=== PATIENT | female | born 1990 | race Caucasian/White ===

== ENCOUNTER 2018-07-08 02:00 | Inpatient (IN) | payer MEDICAID ==
[2018-07-08] MEDS ORDERED: OXYTOCIN 30 UNITS/LR 500 ML IV ×2 (02:14→04:30)
[2018-07-08] MEDS ORDERED: LIDOCAINE 1% (MPF) 30 ML INJ (02:14)
[2018-07-08] MEDS ORDERED: AMPICILLIN 2 GM/NS (PMX) 100 ML (02:16)
[2018-07-08] MEDS: LACTATED RINGER'S 1,000 ML IV ×2 (02:27→13:37)
[2018-07-08] MEDS: AMPICILLIN 2 GM/NS (PMX) 100 ML IV (02:27)
[2018-07-08 02:44] LABS: ADD MAN DIFF? NO
[2018-07-08 02:49] LABS: BASOPHILS % 0.4 % (0.0-2.0); EOSINOPHILS # 0.1 10^3/ul (0.0-0.5); EOSINOPHILS % 1.3 % (0.0-7.0); HEMATOCRIT 30.5 % (37.0-47.0); HEMOGLOBIN 10.1 g/dl (12.0-16.0); LYMPHOCYTES # 1.5 10^3/ul (0.8-2.9); LYMPHOCYTES % 22.5 % (15.0-51.0); MEAN CORPUSCULAR HEMOGLOBIN 28.9 pg (29.0-33.0); MEAN CORPUSCULAR HGB CONC 33.1 g/dl (32.0-37.0); MEAN CORPUSCULAR VOLUME 87.4 fl (82.0-101.0); MEAN PLATELET VOLUME 12.1 fl (7.4-10.4); MONOCYTE # 0.4 10^3/ul (0.3-0.9); MONOCYTES % 6.3 % (0.0-11.0); NEUTROPHIL # 4.7 10^3/ul (1.6-7.5); NEUTROPHILS % 69.1 % (39.0-77.0); PLATELET COUNT 177 10^3/UL (140-415); RED BLOOD COUNT 3.49 10^6/ul (4.20-5.40); RED CELL DISTRIBUTION WIDTH 13.2 % (11.5-14.5)
[2018-07-08 02:49] LABS: WHITE BLOOD COUNT 6.9 10^3/ul (4.8-10.8)
[2018-07-08 03:08] LABS: INR 0.85; PROTIME 11.7 Sec (11.9-14.9); PT RATIO 0.9
[2018-07-08] MEDS ORDERED: MINERAL OIL LIGHT 10 ML VIAL (03:08)
[2018-07-08 03:09] LABS: PARTIAL THROMBOPLASTIN TIME 26.1 Sec (23.0-35.0)
[2018-07-08] MEDS: LIDOCAINE 1% (MPF) 30 ML INJ INJ (03:25)
[2018-07-08] MEDS: MINERAL OIL LIGHT 10 ML VIAL TOP (03:26)
[2018-07-08] MEDS: OXYTOCIN 30 UNITS/LR 500 ML IV ×3 (03:28→04:27)
[2018-07-08] MEDS: METHYLERGONOVINE 0.2 MG INJ IM (03:45)
[2018-07-08] MEDS: MISOPROSTOL 200 MCG TAB PR (04:01)
[2018-07-08] MEDS ORDERED: DEXTROSE 5%-LR 1,000 ML IV (04:20)
[2018-07-08] MEDS ORDERED: OXYCODONE/ASPIRIN (4.88/325) TAB PO (04:30)
[2018-07-08] MEDS ORDERED: ONDANSETRON 4 MG INJ IV (04:30)
[2018-07-08] MEDS ORDERED: METHYLERGONOVINE 0.2 MG INJ IM (04:30)
[2018-07-08] MEDS ORDERED: WITCH HAZEL/GLYCERIN PAD PR (04:30)
[2018-07-08] MEDS ORDERED: LANOLIN HPA 1 PKT TOP (04:30)
[2018-07-08] MEDS ORDERED: DIPHENHYDRAMINE 50 MG INJ IV (04:30)
[2018-07-08] MEDS ORDERED: BENZOCAINE 20% 56 ML SPRAY TOP (04:30)
[2018-07-08] MEDS ORDERED: CARBOPROST 250 MCG INJ IM (04:30)
[2018-07-08] MEDS ORDERED: ACETAMINOPHEN 325 MG TAB PO (04:30)
[2018-07-08] MEDS ORDERED: DIBUCAINE 1% 30 GM OINT TOP (04:30)
[2018-07-08] MEDS ORDERED: ZOLPIDEM 5 MG TAB PO (04:30)
[2018-07-08] MEDS ORDERED: MISOPROSTOL 200 MCG TAB PR (04:30)
[2018-07-08] MEDS: CARBOPROST 250 MCG INJ IM (05:14)
[2018-07-08] MEDS: ONDANSETRON 4 MG INJ IV (06:30)
[2018-07-08] MEDS: AMPICILLIN 1 GM/NS (PMX) 50 ML IV (06:30)
[2018-07-08] MEDS: OXYCODONE/ASPIRIN (4.88/325) TAB PO (06:58)
[2018-07-08] MEDS: LACTATED RINGER'S 1,000 ML IV* ×3 (08:33→20:15)
[2018-07-08 09:14] LABS: ADD MAN DIFF? NO
[2018-07-08 09:17] LABS: WHITE BLOOD COUNT 14.6 10^3/ul (4.8-10.8)
[2018-07-08 09:17] LABS: BASOPHILS % 0.2 % (0.0-2.0); HEMATOCRIT 36.6 % (37.0-47.0); HEMOGLOBIN 12.1 g/dl (12.0-16.0); LYMPHOCYTES # 0.9 10^3/ul (0.8-2.9); MEAN CORPUSCULAR HEMOGLOBIN 28.9 pg (29.0-33.0); MEAN CORPUSCULAR HGB CONC 33.1 g/dl (32.0-37.0); MEAN CORPUSCULAR VOLUME 87.6 fl (82.0-101.0); MEAN PLATELET VOLUME 12.5 fl (7.4-10.4); MONOCYTE # 0.5 10^3/ul (0.3-0.9); MONOCYTES % 3.6 % (0.0-11.0); NEUTROPHIL # 13.2 10^3/ul (1.6-7.5); NEUTROPHILS % 89.9 % (39.0-77.0); PLATELET COUNT 210 10^3/UL (140-415); RED BLOOD COUNT 4.18 10^6/ul (4.20-5.40); RED CELL DISTRIBUTION WIDTH 12.9 % (11.5-14.5)
[2018-07-08] MEDS: SOD CHLORIDE 0.9% 1,000 ML IV (09:18)
[2018-07-08] MEDS ORDERED: CEFAZOLIN 2 GM/50 ML (PMX) 50 ML IVPB (09:52)
[2018-07-08] MEDS: CEFAZOLIN 2 GM/50 ML (PMX) 50 ML IVPB (10:01)
[2018-07-08] MEDS: BUTORPHANOL 2 MG INJ IV (10:28)
[2018-07-08 11:20] LABS: ADD MAN DIFF? NO
[2018-07-08 11:27] LABS: WHITE BLOOD COUNT 13.2 10^3/ul (4.8-10.8)
[2018-07-08 11:27] LABS: BASOPHILS % 0.2 % (0.0-2.0); HEMATOCRIT 31.2 % (37.0-47.0); HEMOGLOBIN 10.4 g/dl (12.0-16.0); LYMPHOCYTES # 0.8 10^3/ul (0.8-2.9); LYMPHOCYTES % 6.1 % (15.0-51.0); MEAN CORPUSCULAR HEMOGLOBIN 29.3 pg (29.0-33.0); MEAN CORPUSCULAR HGB CONC 33.3 g/dl (32.0-37.0); MEAN CORPUSCULAR VOLUME 87.9 fl (82.0-101.0); MEAN PLATELET VOLUME 12.2 fl (7.4-10.4); MONOCYTE # 0.4 10^3/ul (0.3-0.9); MONOCYTES % 3.1 % (0.0-11.0); NEUTROPHIL # 11.9 10^3/ul (1.6-7.5); NEUTROPHILS % 90.2 % (39.0-77.0); PLATELET COUNT 184 10^3/UL (140-415); RED BLOOD COUNT 3.55 10^6/ul (4.20-5.40); RED CELL DISTRIBUTION WIDTH 13.2 % (11.5-14.5)
[2018-07-08] MEDS: IBUPROFEN 600 MG TAB PO ×4 (12:00→23:42)
[2018-07-08 15:16] LABS: RAPID PLASMA REAGIN NONREACTIVE (NR)
[2018-07-08 17:52] LABS: ADD MAN DIFF? NO
[2018-07-08 17:57] LABS: WHITE BLOOD COUNT 9.6 10^3/ul (4.8-10.8)
[2018-07-08 17:57] LABS: BASOPHILS % 0.2 % (0.0-2.0); HEMATOCRIT 25.5 % (37.0-47.0); HEMOGLOBIN 8.3 g/dl (12.0-16.0); LYMPHOCYTES # 1.5 10^3/ul (0.8-2.9); LYMPHOCYTES % 15.5 % (15.0-51.0); MEAN CORPUSCULAR HEMOGLOBIN 28.9 pg (29.0-33.0); MEAN CORPUSCULAR HGB CONC 32.5 g/dl (32.0-37.0); MEAN CORPUSCULAR VOLUME 88.9 fl (82.0-101.0); MONOCYTE # 0.7 10^3/ul (0.3-0.9); MONOCYTES % 7.1 % (0.0-11.0); NEUTROPHIL # 7.4 10^3/ul (1.6-7.5); NEUTROPHILS % 76.9 % (39.0-77.0); PLATELET COUNT 146 10^3/UL (140-415); RED BLOOD COUNT 2.87 10^6/ul (4.20-5.40); RED CELL DISTRIBUTION WIDTH 13.2 % (11.5-14.5)
[2018-07-09] MEDS: LACTATED RINGER'S 1,000 ML IV* ×2 (04:25→12:20)
[2018-07-09] MEDS: IBUPROFEN 600 MG TAB PO ×3 (05:42→17:45)
[2018-07-09] MEDS: MEDROXYPROGESTERONE 150 MG INJ SYG IM ×2 (06:30→09:36)
[2018-07-09 08:11] LABS: ADD MAN DIFF? NO
[2018-07-09 08:21] LABS: BASOPHILS % 0.3 % (0.0-2.0); EOSINOPHILS % 0.5 % (0.0-7.0); HEMOGLOBIN 7.1 g/dl (12.0-16.0); LYMPHOCYTES # 1.5 10^3/ul (0.8-2.9); LYMPHOCYTES % 25.6 % (15.0-51.0); MEAN CORPUSCULAR HEMOGLOBIN 29.1 pg (29.0-33.0); MEAN CORPUSCULAR HGB CONC 32.3 g/dl (32.0-37.0); MEAN CORPUSCULAR VOLUME 90.2 fl (82.0-101.0); MEAN PLATELET VOLUME 12.3 fl (7.4-10.4); MONOCYTE # 0.3 10^3/ul (0.3-0.9); MONOCYTES % 5.3 % (0.0-11.0); PLATELET COUNT 128 10^3/UL (140-415); RED BLOOD COUNT 2.44 10^6/ul (4.20-5.40); RED CELL DISTRIBUTION WIDTH 13.4 % (11.5-14.5)
[2018-07-09 08:21] LABS: WHITE BLOOD COUNT 5.9 10^3/ul (4.8-10.8)
[2018-07-09] MEDS: SENNA/DOCUSATE NA (8.6MG/50MG) TAB PO (09:25)
[2018-07-09] MEDS: FERROUS SULFATE (EC) 325 MG TAB PO ×2 (11:03→21:25)
[2018-07-09] MEDS: CYANOCOBALAMIN 1000 MCG INJ SC (21:27)
[2018-07-10] MEDS: IBUPROFEN 600 MG TAB PO ×3 (00:46→11:23)
[2018-07-10] MEDS ORDERED: MEASLES,MUMPS,RUBELLA VACCINE INJ SC* (09:00)
[2018-07-10] MEDS: FERROUS SULFATE (EC) 325 MG TAB PO (10:14)
[2018-07-10] MEDS: SENNA/DOCUSATE NA (8.6MG/50MG) TAB PO (10:14)
[2018-07-10] MEDS: DIPHTH/TET/ACEL PERTUSS (ADULT) 0.5 ML VIAL IM* (10:15)
== END 2018-07-10 13:30 | disposition home or self-care (01) | DRG 806 ==
LOC: OBT 02:00 → L-D 02:00 → OBT 02:03 → L-D 02:03 → PP1 14:32
PROVIDERS: Obstetrics & Gynecology
PROC: 10E0XZZ Delivery of Products of Conception, External Approach (ICD-10-PCS; principal; 2018-07-08)
PROC: 0W8NXZZ Division of Female Perineum, External Approach (ICD-10-PCS; 2018-07-08)
PROC: 0UCG7ZZ Extirpation of Matter from Vagina, Via Natural or Artificial Opening (ICD-10-PCS; 2018-07-08)
DX: O99.824 Streptococcus B carrier state complicating childbirth (principal); D62 Acute posthemorrhagic anemia; O72.1 Other immediate postpartum hemorrhage; O90.81 Anemia of the puerperium; Z3A.39 39 weeks gestation of pregnancy; Z37.0 Single live birth; Z23 Encounter for immunization
CPT/HCPCS: 85025; 85610; 85730; 86592; 86850; 86900; 86901; 90715; 99464